=== PATIENT | male | born 1940 ===

== ENCOUNTER 2017-04-20 17:01 | Inpatient (IN) | payer MEDICARE, MEDICAID ==
--- NOTE | 2017-04-20 17:33 | ED PDOC ---
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 Denies chest pain or shortness of breath. Denies nausea or vomiting. States that he did not want to eat throughout the day. Denies acute back pain. Denies constipation or diarrhea. Denies diaphoresis or exertional symptoms. Patient denies prior history of abdominal surgeries. Past Medical History - Cardiac Hx Cardiac Disorders: Yes Hx Hypertension: Yes - Pulmonary Hx Respiratory Disorders: No - Neurological Hx Neurological Disorder: No - Renal Hx Renal Disorder: No - Endocrine/Metabolic Hx Endocrine Disorders: No - Hematological/Oncological Hx Blood Disorders: No - Integumentary Hx Dermatological Disorder: No - Musculoskeletal/Rheumatological Hx Musculoskeletal Disorders: Yes - Gastrointestinal Hx Gastrointestinal Disorders: No - Genitourinary/Gynecological Hx Genitourinary Disorders: No - Psychiatric Hx Psychophysiologic Disorder: No Hx Substance Use: No - Surgical History Hx Coronary Artery Bypass Graft: Yes Hx Open Heart Surgery: Yes - Anesthesia Hx Anesthesia: Yes - Suicidal Assessment Feels Threatened In Home Enviroment: No Family/Social History Family/Social History: Unknown Family HX Smoking Status: Never Smoked Hx Alcohol Use: No Hx Substance Use: No Hx Substance Use Treatment: No Allergies/Home Meds Allergies/Adverse Reactions: Allergies No Known Allergies Allergy (Verified 04/20/17 17:09) Home Medications: Home Meds Medication Instructions Recorded Confirmed Aspirin [Aspirin Chewable] 81 mg PO DAILY 04/20/17 04/20/17 Lisinopril [Zestril] 10 mg PO DAILY 04/20/17 04/20/17 Metoprolol Tartrate [Lopressor] 100 mg PO DAILY 04/20/17 04/20/17 Rosuvastatin Calcium [Crestor] 20 mg PO HS 04/20/17 04/20/17 Review of Systems - Review of Systems Constitutional: absent: Fevers Respiratory: absent: SOB Cardiovascular: absent: Chest Pain Gastrointestinal: Abdominal Pain, Appetite Changes. absent: Constipation, Diarrhea, Nausea, Vomiting, Hematemesis, Food Intolerance Genitourinary Male: absent: Dysuria, Frequency Musculoskeletal: absent: Back Pain, Neck Pain Skin: absent: Rash Neurological: absent: Headache, Dizziness, Focal Weakness Endocrine: absent: Polyuria, Polydipsia Hemo/Lymphatic: absent: Easy Bleeding Psychiatric: absent: Depression, Suicidal Ideation Physical Exam Vital Signs Reviewed: Yes Vital Signs Temp Pulse Resp BP Pulse Ox 04/20/17 21:53 72 16 167/80 H 97 04/20/17 20:00 80 18 170/85 H 97 04/20/17 19:40 91 H 196/94 H 04/20/17 19:31 99.4 F 87 16 196/94 H 97 04/20/17 18:30 92 H 16 148/91 H 100 04/20/17 17:14 95 H 18 190/91 H 100 Temperature: Afebrile Appearance: Positive for: Non-Toxic, Uncomfortable Pain Distress: Mild Mental Status: Positive for: Alert and Oriented X 3 - Systems Exam Head: Present: Atraumatic, Normocephalic Pupils: Present: PERRL Extroacular Muscles: Present: EOMI Mouth: Present: Moist Mucous Membranes Pharnyx: No: ERYTHEMA Nose (Internal): Present: Normal Inspection Neck: Present: Normal Range of Motion. No: Meningeal Signs Cardiovascular: Present: Regular Rate and Rhythm, Murmurs Abdomen: Present: Tenderness (mild ruq pain, non pulsatile masses). No: Peritoneal Signs Back: No: CVA Tenderness Upper Extremity: No: Cyanosis, Edema Lower Extremity: Present: NORMAL PULSES, Neurovascularly Intact. 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 History obtained by patient and family. Patient has prior history of CABG, although currently no complaints of chest pain or sob. Pain sudden onset and he has focal RUQ pain on palpation. He states he has been moving his bowels. Denies nausea or vomiting. Ultrasound ordered, preliminary report reveals no gallstones reportedly. Leukocytosis noted, patient also with elevated lactate. Not hypotensive, not toxic appearing. Code sepsis called as leukocytosis, suspicion of intraabdominal infection, elevated lactate. As significant past cardiac history and ? pulmonary vascular congestion noted on chest xray, iv fluids ordered however with close monitoring of respiratory status. He continues to deny chest pain or sob. CT abdomen/pelvis obtained as persistent right sided abdominal pain on re-exam, blood noted on UA. CT reveals ? ileus, dilated gallbladder. Currently liver function tests unremarkable. Given persistent focal RUQ pain, suspect possible cholecystitis. IV antibiotics initiated. Surgery consulted. Case discussed with Dr. Ruben Boswell, PMD, accepts admission to his service , and patient admitted. Treatment plan d/w patient and translated. On re-exam, pain persists, but no peritoneal signs, cv stable. I discussed case with surgical team, who evaluated patient in the ED. - Lab Interpretations Lab Results: 04/20/17 18:15 04/20/17 18:15 Lab Results 04/20/17 19:15: Urine Color Yellow, Urine Appearance Sl cloudy, Urine pH 6.0, Ur Specific [place] >= 1.030, Urine Protein >=300 H, Urine Glucose (UA) Negative , Urine Ketones Negative, Urine Blood Moderate H, Urine Nitrate Negative, Urine Bilirubin Negative, Urine Urobilinogen 0.2, Ur Leukocyte Esterase Negative, Urine RBC 1 - 3, Urine WBC 0 - 2, Ur Epithelial Cells 0 - 2, Urine Bacteria Occ , Hyaline Casts 0 - 2 04/20/17 18:15: Sodium 138, Chloride 101, Potassium 4.1, Carbon Dioxide 23, Anion Gap 18, BUN 19, Creatinine 0.7, Est GFR ( Amer) > 60, Est GFR (Non- Af Amer) > 60, Random Glucose 129 H, Calcium 8.9, Total Bilirubin 0.9, AST 45, ALT 47, Alkaline Phosphatase 95, Lactate Dehydrogenase 659, Total Creatine Kinase 465 H, CK-MB (CK-2) 7.0 H, CK-MB (CK-2) % 1.5 L, Troponin I < 0.01, Total Protein 8.1, Albumin 4.2, Globulin 3.9, Albumin/Globulin Ratio 1.1, Amylase 93, Lipase 30 04/20/17 18:15: pO2 51, VBG pH 7.39, VBG pCO2 41.0, VBG HCO3 24.8, VBG Total CO2 26.1, VBG O2 Sat (Calc) 90.5 H, VBG Base Excess -0.2 L, VBG Potassium 4.1, Sodium 137.0, Chloride 101.0, Glucose 141 H, Lactate 3.2 H, FiO2 21.0, Venous Blood Potassium 4.1 04/20/17 18:15: PT 11.0, INR 1.02, APTT 25.9 04/20/17 18:15: WBC 14.4 H D, RBC 4.62, Hgb 14.3, Hct 42.0, MCV 90.9, MCH 31.0, MCHC 34.0, RDW 13.2, Plt Count 207, MPV 10.9, Gran % 78.7 H, Lymph % (Auto) 12.7 L, [place] % (Auto) 8.4 H, Eos % (Auto) 0.1 L, Baso % (Auto) 0.1, Gran # 11.31 H, Lymph # 1.8, [place] # 1.2 H, Eos # 0.0, Baso # 0.02 - RAD Interpretation Radiology Orders: 04/20/17 17:20 ABDOMEN COMPLETE [US] Stat 04/20/17 18:21 ABD & PELVIS W/O PO OR IV CONT [CT] Stat 04/20/17 18:33 CHEST ONE VIEW [RAD] Stat - EKG Interpretation EKG Interpretation (Text): 04/20/17 21:26 EKG normal sinus rhythm rate of 92, possible left atrial enlargement Interpreted by ED Physician: Yes Type: 12 lead EKG - Medication Orders Current Medication Orders: Acetaminophen (Tylenol 325mg Tab) 650 mg PO Q6H PRN PRN Reason: Fever >100.4 F Last Admin: 04/20/17 22:44 Dose: 650 mg Aspirin (Aspirin Chewable) 81 mg PO DAILY KENNETH Last Admin: 04/21/17 10:38 Dose: 81 mg Atorvastatin Calcium (Lipitor) 40 mg PO DIN KENNETH Sodium Chloride (Sodium Chloride 0.9%) 1,000 mls @ 100 mls/hr IV .Q10H KENNETH Last Admin: 04/21/17 09:24 Dose: 100 mls/hr Piperacillin Sod/Tazobactam Sod (Zosyn 4.5 Gm In Ns 100ml) 4.5 gm in 100 mls @ 200 mls/hr IVPB Q6 KENNETH PRN Reason: Protocol Stop: 04/28/17 12:01 Vancomycin HCl (Vancomycin 1gm) 1 gm in 250 mls @ 167 mls/hr IVPB STAT STA PRN Reason: Protocol Stop: 04/21/17 12:09 Last Admin: 04/21/17 10:48 Dose: 167 mls/hr Lisinopril (Zestril) 10 mg PO DAILY KENNETH Metoprolol Succinate (Toprol Xl) 100 mg PO BRK [facility] Last Admin: 04/21/17 10:38 Dose: 100 mg Morphine Sulfate (Morphine) 4 mg IVP Q4H PRN PRN Reason: Pain, moderate (4-7) Last Admin: 04/21/17 10:44 Dose: 4 mg Ondansetron HCl (Zofran Inj) 4 mg IVP Q6H PRN PRN Reason: Nausea/Vomiting Pantoprazole Sodium (Protonix Inj) 40 mg IVP DAILY [facility] Last Admin: 04/21/17 09:21 Dose: 40 mg Discontinued Medications Famotidine (Pepcid) 20 mg IVP STAT STA Stop: 04/20/17 17:26 Last Admin: 04/20/17 18:19 Dose: 20 mg Piperacillin Sod/Tazobactam Sod (Zosyn 4.5 Gm In Ns 100ml) 4.5 g in 100 mls @ 200 mls/hr IVPB STAT STA PRN Reason: Protocol Stop: 04/20/17 20:16 Last Admin: 04/20/17 19:57 Dose: 200 mls/hr Piperacillin Sod/Tazobactam Sod (Zosyn 3.375 In Ns 100ml) 100 mls @ 200 mls/hr IVPB Q6 KENNETH PRN Reason: Protocol Stop: 04/21/17 06:29 Last Admin: 04/21/17 05:43 Dose: 200 mls/hr Sodium Chloride (Sodium Chloride 0.9%) 500 mls @ 1,000 mls/hr IV .Q30M STA Stop: 04/20/17 21:56 Last Admin: 04/20/17 21:39 Dose: 1,000 mls/hr Lisinopril (Zestril) 10 mg PO STAT STA Stop: 04/20/17 19:35 Last Admin: 04/20/17 19:40 Dose: 10 mg Metoprolol Tartrate (Lopressor) 100 mg PO STAT STA Stop: 04/20/17 19:34 Last Admin: 04/20/17 19:40 Dose: 100 mg Disposition/Present on Arrival - Present on Arrival Any Indicators Present on Arrival: No History of DVT/PE: No History of Uncontrolled Diabetes: No Urinary Catheter: No History of Decub. Ulcer: No History Surgical Site Infection Following: None - Disposition Have Diagnosis and Disposition been Completed?: Yes Diagnosis: Abdominal pain, Leukocytosis, Sepsis Disposition: HOSPITALIZED Disposition Time: 20:20 Patient Plan: Admission Patient Problems: Current Active Problems Problem Status Onset Abdominal pain Acute Leukocytosis Acute Sepsis Acute Condition: FAIR
[2017-04-20] MEDS: Sodium Chloride 0.9% 1,000 ML IV SCH (18:22)
[2017-04-20 18:39] LABS: BASO # 0.02 K/mm3 (0.0-2.0); BASO % 0.1 % (0.0-3.0); EOS % 0.1 % (1.5-5.0); GRAN # 11.31 (1.4-6.5); GRAN % 78.7 % (50.0-68.0); LYMPH # 1.8 (1.2-3.4); LYMPH % 12.7 % (22.0-35.0); MEAN CELL VOLUME 90.9 fl (80.0-105.0); MEAN PLATELET VOLUME 10.9 fl (7.0-11.0); MONO # 1.2 (0.1-0.6); MONO % 8.4 % (1.0-6.0); RED CELL DISTRIBUTION WIDTH 13.2 % (11.5-14.5); VENOUS BLOOD GAS BASE EXCESS -0.2 mmol/L (0.0-2.0); VENOUS BLOOD PH 7.39 (7.32-7.43); WHITE BLOOD COUNT 14.4 10^3/ul (4.5-11.0)
[2017-04-20 18:45] LABS: INR 1.02 (0.93-1.08); PARTIAL THROMBOPLASTIN TIME 25.9 Seconds (23.7-30.8)
[2017-04-20 18:46] LABS: ALB/GLOB RATIO 1.1 (1.1-1.8); ALKALINE PHOSPHATASE 95 U/L (38-126); ALT/SGPT 47 U/L (7-56); AMYLASE 93 U/L (35-125); AST/SGOT 45 U/L (17-59); BILIRUBIN,TOTAL 0.9 mg/dL (0.2-1.3); BLOOD UREA NITROGEN 19 mg/dL (7-21); CALCIUM 8.9 mg/dL (8.4-10.5); CARBON DIOXIDE 23 mmol/L (21-33); CHLORIDE 101 mmol/L (98-107); GFR AFRICAN-AMERICAN > 60; GLUCOSE,RANDOM 129 mg/dL (70-110); LIPASE 30 U/L (23-300); POTASSIUM 4.1 mmol/L (3.6-5.0); SODIUM 138 mmol/L (132-148); TOTAL PROTEIN 8.1 g/dL (5.8-8.3)
[2017-04-20 19:19] LABS: TROPONIN I < 0.01 ng/mL
[2017-04-20 19:45] LABS: URINE BILIRUBIN NEGATIVE (NEGATIVE); URINE BLOOD MODERATE (NEGATIVE); URINE GLUCOSE (UA) NEGATIVE (NEGATIVE); URINE KETONE NEGATIVE (NEGATIVE); URINE LEUKOCYTE ESTERASE NEGATIVE Leu/uL (NEGATIVE); URINE PROTEIN >=300 mg/dL (<30 mg/dL); URINE UROBILINOGEN 0.2 E.U./dL (<1 E.U./dL)
[2017-04-20] MEDS ORDERED: TAZO IVPB STA (19:47)
[2017-04-20] MEDS ORDERED: NS IVPB STA (19:47)
[2017-04-20] MEDS ORDERED: PIPERACILL IVPB STA (19:47)
[2017-04-20 19:49] LABS: URINE APPEARANCE SL CLOUDY (CLEAR); URINE COLOR YELLOW (YELLOW)
[2017-04-20 20:00] LABS: URINE BACTERIA OCC (NEG); URINE EPITHELIAL CELLS 0 - 2 /hpf (0-5); URINE WBC 0 - 2 /hpf (0-6)
--- NOTE | 2017-04-20 20:16 | CT ---
EXAM: CT Abdomen and Pelvis Without Intravenous Contrast EXAM DATE/TIME: 04/20/2017 6:21 PM CLINICAL HISTORY: 76 years old, male; Pain; Abdominal pain; Additional info: Right sided abdominal pain TECHNIQUE: Axial computed tomography images of the abdomen and pelvis without intravenous contrast. All CT scans at this facility use one or more dose reduction techniques, viz.: automated exposure control; ma/kV adjustment per patient size (including targeted exams where dose is matched to indication; i.e. head); or iterative reconstruction technique. Coronal and sagittal reformatted images were created and reviewed. COMPARISON: US - ABDOMEN COMPLETE 04/20/2017 5:33:25 PM FINDINGS: Lower thorax: There are postsurgical changes of median sternotomy. There are clips in the mediastinum. There are coronary artery calcifications. The heart is mildly enlarged. There is a small hiatal hernia. There is atelectasis and scarring at the lung bases. ABDOMEN: Liver: unremarkable Gallbladder and bile ducts: Gallbladder is distended, 11 cm in length. Common duct is unremarkable. Pancreas: Pancreas is mildly atrophic. Spleen: unremarkable Adrenals: There is mild adrenal thickening bilaterally Kidneys and ureters: There is a 6.2 mm hyperdense right upper pole renal lesion. There is a left renal cyst. There is nonspecific perinephric stranding bilaterally.There is no pelvocaliectasis or ureterectasis. Stomach and bowel: Stomach is almost empty. Rotation is normal. Proximal small bowel is mildly distended with fluid and air. There is air and fluid throughout the small bowel. There is no obstruction. Terminal ileum is unremarkable. Appendix is unremarkable. Colon is incompletely distended which limits evaluation. There is minimal diverticulosis. Appendix: See stomach and bowel PELVIS: Bladder: unremarkable Reproductive: Seminal vesicles and prostate are unremarkable. ABDOMEN and PELVIS: Intraperitoneal space: There is no free air or free fluid. Bones/joints: There are bridging syndesmophytes throughout the visualized thoracic spine and upper lumbar spine.There are degenerative changes in the osseus structures. There is partial ankylosis of the sacroiliac joints Soft tissues: There are bilateral fat-containing inguinal hernias. Vasculature: There are vascular calcifications. Lymph nodes: There is no pathologic adenopathy IMPRESSION: Distended gallbladder, no ductal dilatation; no CT findings of appendicitis or diverticulitis; probable hyperdense right upper pole renal cyst, no renal or ureteral stones or hydronephrosis; mildly distended upper small bowel loops suggesting ileus, no obstruction Additional findings as described above.
[2017-04-20] MEDS ORDERED: Sodium Chloride 0.9% 500 ML IV STA (21:27)
--- NOTE | 2017-04-20 21:37 | CP.PCM.CON ---
History of Present Illness - History of Present Illness History of Present Illness: General surgery Consult Note: Dr. Ogden 76M w/ PMHx HTN, CT, cardiac bypass surgery, presents to the ED w/ complaints of RUQ pain. Patient reports pain woke him up around 1AM. Describes pain as sharp, constant, and non-radiating. He states this is the first time he experiences this type of pain. Denies fever/chills, chest pain, SOB, cough, n/v/ d, dysuria, constipation. PMHx: as stated above PSurgHx: cataract surgery, cardiac bypass surgery Allergies: NKDA Review of Systems - Review of Systems Review of Systems: 12 pt ROS carried out, unremarkable,except as stated in HPI Past Patient History - Past Social History Smoking Status: Never Smoked - CARDIAC Hx Cardiac Disorders: Yes Hx Hypertension: Yes - PULMONARY Hx Respiratory Disorders: No - NEUROLOGICAL Hx Neurological Disorder: No - RENAL Hx Chronic Kidney Disease: No - ENDOCRINE/METABOLIC Hx Endocrine Disorders: No - HEMATOLOGICAL/ONCOLOGICAL Hx Blood Disorders: No - INTEGUMENTARY Hx Dermatological Problems: No - MUSCULOSKELETAL/RHEUMATOLOGICAL Hx Musculoskeletal Disorders: Yes - GASTROINTESTINAL Hx Gastrointestinal Disorders: No - GENITOURINARY/GYNECOLOGICAL Hx Genitourinary Disorders: No - PSYCHIATRIC Hx Psychophysiologic Disorder: No Hx Substance Use: No - SURGICAL HISTORY Hx Coronary Artery Bypass Graft: Yes Hx Open Heart Surgery: Yes - ANESTHESIA Hx Anesthesia: Yes Meds Allergies/Adverse Reactions: Allergies Allergy/AdvReac Type Severity Reaction Status Date / Time No Known Allergies Allergy Verified 04/20/17 17:09 - Medications Medications: Current Medications Acetaminophen (Tylenol 325mg Tab) 650 mg PO Q6H PRN PRN Reason: Fever >100.4 F Sodium Chloride (Sodium Chloride 0.9%) 1,000 mls @ 100 mls/hr IV .Q10H KENNETH Last Admin: 04/20/17 18:22 Dose: 100 mls/hr Piperacillin Sod/Tazobactam Sod (Zosyn 3.375 In Ns 100ml) 100 mls @ 200 mls/hr IVPB Q6 KENNETH PRN Reason: Protocol Stop: 04/21/17 06:29 Sodium Chloride (Sodium Chloride 0.9%) 500 mls @ 1,000 mls/hr IV .Q30M STA Stop: 04/20/17 21:56 Morphine Sulfate (Morphine) 4 mg IVP Q4H PRN PRN Reason: Pain, moderate (4-7) Ondansetron HCl (Zofran Inj) 4 mg IVP Q6H PRN PRN Reason: Nausea/Vomiting Pantoprazole Sodium (Protonix Inj) 40 mg IVP DAILY KENNETH Results - Vital Signs Recent Vital Signs: Last Vital Signs Temp 99.4 F 04/20/17 19:31 Pulse 80 04/20/17 20:00 Resp 18 04/20/17 20:00 BP 170/85 H 04/20/17 20:00 Pulse Ox 97 04/20/17 20:00 - Labs Result Diagrams: 04/20/17 18:15 04/20/17 18:15 Assessment & Plan - Assessment and Plan (Free Text) Assessment: 76M w/ RUQ pain, leukocytosis, and distended GB on CT scan. No evidence of stones on Abd U/S. -F/u official U/S report -Will order HIDA scan -NPO -IVF -Abx -Anti-emetics/Analgesics -DVT/GI ppx -Will make further recommendations based on HIDA scan results -Further recs per Dr. Alin Merrill PGY-2
[2017-04-20 21:56] LABS: VENOUS BLOOD GAS BASE EXCESS -0.2 mmol/L (0.0-2.0); VENOUS BLOOD PH 7.42 (7.32-7.43)
[2017-04-20 22:05] VITALS: BMI 38.2
[2017-04-21] MEDS ORDERED: Piperacillin/Tazobact 3.375 gm 100 ML IVPB SCH
--- NOTE | 2017-04-21 08:46 | CP.PCM.PN ---
Subjective - Date & Time of Evaluation Date of Evaluation: 04/21/17 Time of Evaluation: 07:00 - Subjective Subjective: General sx progress note for Dr. Kenisha Hatch, PGY-1 Pt S & E at bedside. Pt reports RUQ ab pain is much improved, some chills overnight. Denies N/V/F, CP , SOB. Has had temperature over last 24H- Tmax 101.3. Objective - Vital Signs/Intake and Output Vital Signs (last 24 hours): Temp Pulse Resp BP Pulse Ox 99.9 F H 75 20 161/59 H 96 04/21/17 07:49 04/21/17 07:49 04/21/17 07:49 04/21/17 07:49 04/21/17 07:49 Intake and Output: 04/21/17 04/21/17 06:59 18:59 Intake Total 120 Balance 120 - Medications Medications: Current Medications Acetaminophen (Tylenol 325mg Tab) 650 mg PO Q6H PRN PRN Reason: Fever >100.4 F Last Admin: 04/20/17 22:44 Dose: 650 mg Sodium Chloride (Sodium Chloride 0.9%) 1,000 mls @ 100 mls/hr IV .Q10H KENNETH Last Admin: 04/20/17 18:22 Dose: 100 mls/hr Morphine Sulfate (Morphine) 4 mg IVP Q4H PRN PRN Reason: Pain, moderate (4-7) Ondansetron HCl (Zofran Inj) 4 mg IVP Q6H PRN PRN Reason: Nausea/Vomiting Pantoprazole Sodium (Protonix Inj) 40 mg IVP DAILY KENNETH - Labs Labs: PT 11.0 Seconds (9.9-11.8) 04/20/17 18:15 INR 1.02 (0.93-1.08) 04/20/17 18:15 APTT 25.9 Seconds (23.7-30.8) 04/20/17 18:15 - Constitutional Appears: Non-toxic, No Acute Distress - Head Exam Head Exam: ATRAUMATIC, NORMAL INSPECTION, NORMOCEPHALIC - Eye Exam Eye Exam: EOMI, Normal appearance - ENT Exam ENT Exam: Mucous Membranes Moist, Normal Exam - Neck Exam Neck Exam: Full ROM - Respiratory Exam Respiratory Exam: Clear to Ausculation Bilateral, NORMAL BREATHING PATTERN. absent: Rales, Rhonchi, Wheezes - Cardiovascular Exam Cardiovascular Exam: REGULAR RHYTHM, +S1, +S2 - GI/Abdominal Exam GI & Abdominal Exam: Guarding (RUQ), Soft, Tenderness (RUQ), Hypoactive Bowel Sounds. absent: Distended (obese), Firm, Rigid, Rebound - Extremities Exam Extremities Exam: Normal Inspection. absent: Pedal Edema - Neurological Exam Neurological Exam: Alert, CN II-XII Intact. absent: Awake (asleep, arousable to verbal stimuli) - Psychiatric Exam Psychiatric exam: Normal Affect, Normal Mood - Skin Skin Exam: Dry, Intact, Normal Color, Warm Assessment and Plan - Assessment and Plan (Free Text) Assessment: 76M w/biliary colic- improving Plan: FU HIDA CLD IVF ABx Anti-emetics Pain control Further recs per Dr. Alin Hatch, PGY-1
[2017-04-21 09:20] LABS: BASO # 0.02 K/mm3 (0.0-2.0); BASO % 0.1 % (0.0-3.0); GRAN # 12.85 (1.4-6.5); GRAN % 79.3 % (50.0-68.0); HEMATOCRIT 38.7 % (42.0-52.0); LYMPH # 1.4 (1.2-3.4); LYMPH % 8.6 % (22.0-35.0); MEAN CELL VOLUME 90.6 fl (80.0-105.0); MEAN CORPUSCULAR HEMOGLOBIN 31.6 pg (25.0-35.0); MEAN CORPUSCULAR HGB CONC 34.9 g/dl (31.0-37.0); MEAN PLATELET VOLUME 10.4 fl (7.0-11.0); MONO # 1.9 (0.1-0.6); RED CELL DISTRIBUTION WIDTH 13.5 % (11.5-14.5); WHITE BLOOD COUNT 16.2 10^3/ul (4.5-11.0)
[2017-04-21] MEDS: Sodium Chloride 0.9% 1,000 ML IV SCH (09:24)
[2017-04-21 09:39] LABS: ALKALINE PHOSPHATASE 80 U/L (38-126); ALT/SGPT 44 U/L (7-56); AST/SGOT 36 U/L (17-59); BILIRUBIN,TOTAL 1.8 mg/dL (0.2-1.3); BLOOD UREA NITROGEN 16 mg/dL (7-21); CALCIUM 8.2 mg/dL (8.4-10.5); CARBON DIOXIDE 24 mmol/L (21-33); CHLORIDE 105 mmol/L (98-107); GFR AFRICAN-AMERICAN > 60; GLUCOSE,RANDOM 127 mg/dL (70-110); SODIUM 137 mmol/L (132-148); TOTAL PROTEIN 7.1 g/dL (5.8-8.3)
[2017-04-21] MEDS: Metoprolol Succinate 100 mg XL Tab PO SCH (10:38)
[2017-04-21] MEDS ORDERED: Vancomycin 1gm in NS 250ml 1 GM/250 ML BAG IVPB STA (10:40)
[2017-04-21] MEDS: Morphine 4 mg/ml ISec IVP PRN (10:44)
--- NOTE | 2017-04-21 11:03 | RAD ---
PROCEDURE: CHEST RADIOGRAPH, 1 VIEW HISTORY: ruq abdominal pain COMPARISON: None available. FINDINGS: LUNGS: Clear. PLEURA: No pneumothorax or pleural fluid seen. CARDIOVASCULAR: There is moderate to severe cardiomegaly. OSSEOUS STRUCTURES: Sternal wires VISUALIZED UPPER ABDOMEN: Normal. OTHER FINDINGS: None. IMPRESSION: Severe cardiomegaly. No acute findings
[2017-04-21] MEDS: Piperacill/Tazo 4.5gm in NS 4.5 GM/100 ML BAG IVPB SCH ×3 (12:28→23:17)
--- NOTE | 2017-04-21 13:21 | US ---
HISTORY: upper abdominal pain COMPARISON: None. TECHNIQUE: Sonographic evaluation of the abdomen. FINDINGS: LIVER: Measures 17.7 cm. Increased echogenicity of the liver parenchyma. No mass. No intrahepatic bile duct dilatation. GALLBLADDER: Unremarkable. No gallstones. COMMON BILE DUCT: Measures 4.6 mm. No stones. No dilatation. PANCREAS: Limited visualization RIGHT KIDNEY: Measures 13.8 x 6.0 x 5.7cm. Normal echogenicity. No calculus, mass, or hydronephrosis. LEFT KIDNEY: Measures 13.1 x 6.2 x 5.4cm. Normal echogenicity. No calculus, mass, or hydronephrosis. SPLEEN: Normal in size and contour. No mass. AORTA: No aneurysmal dilatation. IVC: Unremarkable. OTHER FINDINGS: None. IMPRESSION: Unremarkable abdominal sonogram.
--- NOTE | 2017-04-21 13:45 | HP ---
HISTORY OF PRESENT ILLNESS: The patient is a 76-year-old male with a past medical history of CAD s/p AR s/p CABG, hypertension, hyperlipidemia and obesity who presented to [facility] emergency department for evaluation of acute onset of right upper quandrant abdominal pain. The patient states that he was in his usual state of health until the day of presentation to the emergency department when he awoke at approximately 1 a.m. with a severe , sharp, stabbing right upper quadrant abdominal pain that was non-radiating and not associated with any symptoms including nausea, vomiting, diarrhea, diaphoresis, fevers, chills, rigors or hematemesis. The patient states that he never felt such pain in the past and that it is unlike the pain he had when he suffered his AR several years ago. Given the severe intensity of the pain and unrelenting nature of the pain he opted for emergency department evaluation. Upon arrival to the ED he was noted to be afebrile but slightly tachycardiac, hypertensive and in moderate distress secondary to right upper quadrant abdominal pain. Physical examination disclosed a positive Hair sign and as such the patient underwent a CT of the abdomen and pelvis which demonstrated a distended gallbladder with no obvious stones. Given his symptoms, the patient was started on IV fluids, maintained NPO and admitted to the general medical moralez for continued pain control. PAST MEDICAL HISTORY: As per HPI. PAST SURGICAL HISTORY:: As per HPI, also bilateral cataract removal. ALLERGIES: NO KNOWN DRUG ALLERGIES. MEDICATIONS: Aspirin 81 mg p.o. daily, Crestor 20 mg p.o. daily, Toprol XL 100 mg p.o. daily, and lisinopril 10 mg p.o. daily. FAMILY HISTORY: Noncontributory. SOCIAL HISTORY: The patient denies any smoking history. He reports social alcohol use and denies illicit drug abuse. REVIEW OF SYSTEMS: A 14-point review of systems is negative except as per HPI. PHYSICAL EXAMINATION: VITAL SIGNS: Temperature 99.9, pulse 75, blood pressure 161/59, respiratory rate 20, oxygen saturation 96% on room air. GENERAL: Morbidly obese man lying in bed, in mild distress secondary to right upper quadrant abdominal pain. HEENT: PERRL, EOMI. No scleral icterus. No conjunctiva pallor. NECK: No JVD. No bruits. LUNGS: Clear to auscultation. CARDIOVASCULAR: Regular rate and rhythm. Normal S1 and S2. ABDOMEN: Normoactive bowel sounds. Soft, tender to palpation to RUQ with voluntary guarding. No rigidity. No tympany. EXTREMITIES: No edema. NEUROLOGIC: Awake, alert and oriented x3. No focal motor deficits. LABORATORY DATA: WBC 16.2 with 79% neutrophils, hemoglobin 13.5, hematocrit 39 , platelets 174. Chemistry reviewed unremarkable. Total bilirubin 1.8. Blood cultures pending. IMAGING STUDIES: 1. Chest x-ray demonstrates no acute pathology. 2. CT of the abdomen and pelvis without contrast demonstrates a distended gallbladder with no ductal dilatation and no findings of appendicitis or diverticulitis and does demonstrate mildly distended upper small bowel loop suggestive of ileus with no obstruction. ASSESSMENT: The patient is a 76-year-old man with a past medical history of coronary artery disease status post myocardial infarction status post coronary artery bypass graft, hypertension, hyperlipidemia, and morbid obesity who presented to [facility] with a several hour history of acute onset of severe sharp stabbing right upper quadrant abdominal pain and who is admitted to the general medical moralez for continued pain control and management of sepsis secondary to presumed hepatobiliary source. PLAN 1. Sepsis secondary to likely hepatobiliary source. The patient was noted to have a fever of 101.3 this morning and increasing leukocytosis. He received a dose of Vancomycin and Zosyn in the emergency room department. Dr. Louis of infectious disease has been consulted for further evaluation and recommendations and the patient will likely benefit from Zosyn. We will continue to monitor for fever and leukocytosis. Continue with Tylenol as needed for fever. 2. Cholecystitis versus possibility of a passed gallstone. Dr. Ogden of general surgery has been mental health consultant. Dr. Lieberman of gastroenterology has been consulted. A HIDA is ordered and pending. We will await the results. At present, the patient is on a liquid diet as per surgical team. Continue with IV fluid hydration and advanced diet as per general surgery. 3. CAD status post AR status post CABG. Continue with aspirin 81 mg p.o. daily , Lipitor 40 mg p.o. daily, and Toprol XL 100 mg p.o. daily. The patient remains hemodynamically stable and chest pain free. 4. Hypertension. Blood pressure slightly elevated. However, this may be secondary to some pain. We will resume outpatient antihypertensives. 5. Hyperlipidemia. The patient is on Crestor 20 mg at home. However, this is not unformulary in the hospital. We will start Lipitor 40 mg p.o. daily. 6. Morbid obesity. The patient has been counseled on dietary changes and lifestyle modifications. 7. Prophylaxis. Continue with Protonix for GI prophylaxis and Venodyne for DVT prophylaxis. CODE STATUS: Full code. Ruben Boswell MD MTDD
--- NOTE | 2017-04-21 15:10 | CP.PCM.CON ---
History of Present Illness - History of Present Illness History of Present Illness: 76 year old male with PMH of HTN, CAD S/P CABG, obesity with BMI 38, S/P cataract surgery came in to [facility] complaining of right upper quadrant pain associated with some nausea and chills. In the ED, he was noted to have a fever of 101.3 F. He is also complaining of some pain in the right flank area which has now resolved and had some difficulty urinating prior to admission. He denies headache or dizziness, no sore throat, no cough or colds, no SOB, no diarrhea, no dysuria. In the ED, CT scan of the abdomen and pelvis showed non-specific bilateral perinephric stranding and distened gallbladder. Infectious Diseases consult is requested to further evaluate and manage. Review of Systems - Review of Systems All systems: reviewed and no additional remarkable complaints except (as per HPI ) Past Patient History - Past Social History Smoking Status: Never Smoked - CARDIAC Hx Cardiac Disorders: Yes Hx Hypertension: Yes - PULMONARY Hx Respiratory Disorders: No - NEUROLOGICAL Hx Neurological Disorder: No - HEENT Hx Cataracts: Yes (b/l sx) - RENAL Hx Chronic Kidney Disease: No - ENDOCRINE/METABOLIC Hx Endocrine Disorders: No - HEMATOLOGICAL/ONCOLOGICAL Hx Blood Disorders: No - INTEGUMENTARY Hx Dermatological Problems: No - MUSCULOSKELETAL/RHEUMATOLOGICAL Hx Musculoskeletal Disorders: Yes - GASTROINTESTINAL Hx Gastrointestinal Disorders: No - GENITOURINARY/GYNECOLOGICAL Hx Genitourinary Disorders: No - PSYCHIATRIC Hx Psychophysiologic Disorder: No Hx Substance Use: No - SURGICAL HISTORY Hx Coronary Artery Bypass Graft: Yes Hx Open Heart Surgery: Yes - ANESTHESIA Hx Anesthesia: Yes Meds Allergies/Adverse Reactions: Allergies Allergy/AdvReac Type Severity Reaction Status Date / Time No Known Allergies Allergy Verified 04/20/17 17:09 - Medications Medications: Current Medications Acetaminophen (Tylenol 325mg Tab) 650 mg PO Q6H PRN PRN Reason: Fever >100.4 F Last Admin: 04/20/17 22:44 Dose: 650 mg Acetaminophen (Tylenol 325mg Tab) 650 mg PO Q6H PRN PRN Reason: Headache Aspirin (Aspirin Chewable) 81 mg PO DAILY [facility] Last Admin: 04/21/17 10:38 Dose: 81 mg Atorvastatin Calcium (Lipitor) 40 mg PO DIN [facility] Sodium Chloride (Sodium Chloride 0.9%) 1,000 mls @ 100 mls/hr IV .Q10H [facility] Last Admin: 04/21/17 09:24 Dose: 100 mls/hr Piperacillin Sod/Tazobactam Sod (Zosyn 4.5 Gm In Ns 100ml) 4.5 gm in 100 mls @ 200 mls/hr IVPB Q6 [facility] PRN Reason: Protocol Stop: 04/28/17 12:01 Last Admin: 04/21/17 12:28 Dose: 200 mls/hr Lisinopril (Zestril) 10 mg PO DAILY [facility] Metoprolol Succinate (Toprol Xl) 100 mg PO BRK [facility] Last Admin: 04/21/17 10:38 Dose: 100 mg Morphine Sulfate (Morphine) 4 mg IVP Q4H PRN PRN Reason: Pain, moderate (4-7) Last Admin: 04/21/17 10:44 Dose: 4 mg Ondansetron HCl (Zofran Inj) 4 mg IVP Q6H PRN PRN Reason: Nausea/Vomiting Pantoprazole Sodium (Protonix Inj) 40 mg IVP DAILY [facility] Last Admin: 04/21/17 09:21 Dose: 40 mg Physical Exam - Constitutional Appears: Non-toxic, No Acute Distress - Head Exam Head Exam: NORMAL INSPECTION - ENT Exam ENT Exam: Mucous Membranes Moist - Neck Exam Neck exam: Negative for: Lymphadenopathy, Meningismus - Respiratory Exam Respiratory Exam: Decreased Breath Sounds - Cardiovascular Exam Cardiovascular Exam: +S1, +S2 - GI/Abdominal Exam GI & Abdominal Exam: Soft, Tenderness (mild, right upper quadrant). absent: Distended, Firm, Guarding, Rebound, Rigid - Back Exam Back exam: absent: CVA tenderness (L), CVA tenderness (R) Results - Vital Signs Recent Vital Signs: Last Vital Signs Temp 99.9 F H 04/21/17 07:49 Pulse 75 04/21/17 10:38 Resp 20 04/21/17 07:49 BP 161/59 H 04/21/17 10:38 Pulse Ox 96 04/21/17 07:49 - Labs Result Diagrams: 04/21/17 09:10 04/21/17 09:10 Labs: Laboratory Results - last 24 hr 04/20/17 04/21/17 04/21/17 21:35 09:10 09:10 WBC 16.2 H RBC 4.27 Hgb 13.5 L Hct 38.7 L MCV 90.6 MCH 31.6 MCHC 34.9 RDW 13.5 Plt Count 174 MPV 10.4 Gran % 79.3 H Lymph % (Auto) 8.6 L [place] % (Auto) 12.0 H Eos % (Auto) 0.0 L Baso % (Auto) 0.1 Gran # 12.85 H Lymph # 1.4 [place] # 1.9 H Eos # 0.0 Baso # 0.02 pO2 145 H VBG pH 7.42 VBG pCO2 37.0 L VBG HCO3 24.0 VBG Total CO2 25.1 VBG O2 Sat (Calc) 99.2 H VBG Base Excess -0.2 L VBG Potassium 4.0 Sodium 135.0 137 Chloride 103.0 105 Glucose 134 H Lactate 2.0 FiO2 21.0 Potassium 4.0 Carbon Dioxide 24 Anion Gap 12 BUN 16 Creatinine 0.8 Est GFR ( Amer) > 60 Est GFR (Non-Af Amer) > 60 Random Glucose 127 H Calcium 8.2 L Total Bilirubin 1.8 H AST 36 ALT 44 Alkaline Phosphatase 80 Total Protein 7.1 Albumin 3.6 Globulin 3.5 Albumin/Globulin Ratio 1.0 L Venous Blood Potassium 4.0 Assessment & Plan - Assessment and Plan (Free Text) Plan: Assessment Systemic Inflammatory Response Syndrome, R/O sepsis due to cholecystitis or biliary tract disease, R/O UTI HTN CAD S/P CABG obesity with BMI 38 S/P cataract surgery Plan patient given a dose of IV Vancomycin, we have started Zosyn pending blood cx, HIDA scan, urine cx will monitor clinically
--- NOTE | 2017-04-21 15:48 | CON ---
DATE: 04/21/2017 REQUESTING PHYSICIAN: Ruben Boswell MD REASON FOR CONSULT: I have been asked to see this 76-year-old male with history of coronary artery disease, hyperlipidemia, hypertension, comes to the hospital with severe right upper quadrant pain which began the care navigator on the day of admission. This was associated with fever to 101. He denies any nausea, vomiting. Routine workup in the emergency room reveals normal liver enzymes, elevated white blood cell count to 16,000, normal gallbladder sonography, and a CT scan of the abdomen and pelvis showing a distended gallbladder. The patient states that his abdominal pain has improved since his hospitalization and now only has right upper quadrant pain with palpation. Again, he denies any nausea, vomiting, chest pain, shortness of breath. PAST MEDICAL HISTORY: As above. Again, he has a history of hypertension, coronary artery disease, hyperlipidemia. PAST SURGICAL HISTORY: Notable for coronary artery bypass surgery, cataract surgery. SOCIAL HISTORY: He denies cigarette smoking or alcohol use. FAMILY HISTORY: Noncontributory. REVIEW OF SYSTEMS: Fourteen-point review of systems is notable for right upper quadrant abdominal pain and fever. PHYSICAL EXAMINATION GENERAL: Obese male lying in bed, in no acute distress. VITAL SIGNS: Reveal temperature of 99.9, blood pressure 161/59, heart rate is 75. T-max is 101.3. His BMI is 38.3. HEENT: Reveal sclerae to be white. Conjunctivae pink. NECK: Supple. CHEST: Reveal lungs to be clear. HEART: Exam reveals regular rate and rhythm. ABDOMEN: Obese, soft, mild right upper quadrant tenderness. There is no rebound. There is no guarding. EXTREMITIES: Show no edema. LABORATORY DATA: Reveal white blood cell count 16.2, hemoglobin 13.5. Chemistries reveal blood sugar 127. AST, ALT, alk phos were normal. Total bilirubin is 1.8. Ultrasound of the abdomen is negative. CT scan of the abdomen and pelvis shows a distended gallbladder. Initial scans of the hepatobiliary scan shows nonvisualization of the gallbladder awaiting 4-hour delayed study. IMPRESSION: A 76-year-old male with coronary artery disease, hypertension, hyperlipidemia admitted to the hospital with severe right upper quadrant abdominal pain with elevated white blood cell count and fever. CT scan of the abdomen and that showed distended gallbladder. One most rule out an acalculous cholecystitis. RECOMMENDATIONS 1. Await delayed imaging of a hepatobiliary scan. 2. Continue IV antibiotics including Zosyn. 3. Continued surgical followup. If the patient continues to have fever and elevated white blood cell count, he may need a cholecystectomy. Buck Hunt MD
--- NOTE | 2017-04-21 16:37 | NM ---
PROCEDURE: Nuclear Medicine Hepatobiliary Scan HISTORY: jeronimo pain COMPARISON: April 20, 2017. Abdominal ultrasound TECHNIQUE: 7.6 mCi of technetium 99m Mebrofenin was administered intravenously. Planar images of the abdomen were obtained at 5 min intervals to 60 mins. Delayed images were also obtained. FINDINGS: LIVER: Timely and heterogeneous uptake. COMMON BILE DUCT: identified at 15 mins. GALLBLADDER: Not identified at 04:00. SMALL BOWEL: Identified at fifteen mins. IMPRESSION: Positive Hepatobiliary Scan. The cystic duct is occluded presumptive evidence for acute cholecystitis. .
--- NOTE | 2017-04-21 18:05 | CARD ---
APPROVED REPORT EKG Measurement Heart [id number] <Conclusion> Normal sinus rhythm Possible Left atrial enlargement Borderline ECG
--- NOTE | 2017-04-21 21:54 | CP.PCM.CON ---
History of Present Illness - History of Present Illness History of Present Illness: General surgery consult note for Dr. Garduno-Mabel Hatch, PGY-1 Pt S & E at bedside. 76M w/PMH sig for HTN, SD, CABG consulted for 2nd surgical opinion for RUQ pain. Patient originally admitted to hospital for RUQ pain that woke him up from sleep at approx 1am on day of admission. Pain was sharp, constant, non radiating. Pain is now much improved since admission with medial interventions. Admits to intermittent PAT, chills. Denies previous episodes of similar, N/V/F, SOB, CP, constipation/diarrhea, dysuria, other complaints. PMH: HTN, SD PSH: CABG, cataract sx All: NKDA Review of Systems - Review of Systems All systems: reviewed and no additional remarkable complaints except - Constitutional Constitutional: Chills. absent: Fever - EENT Nose/Mouth/Throat: absent: Sore Throat - Cardiovascular Cardiovascular: absent: Chest Pain - Respiratory Respiratory: absent: Cough - Gastrointestinal Gastrointestinal: Abdominal Pain (improved). absent: Constipation, Diarrhea, Nausea, Vomiting - Genitourinary Genitourinary: absent: Change in Urinary Stream, Dysuria - Musculoskeletal Musculoskeletal: absent: Back Pain - Integumentary Integumentary: absent: Rash - Neurological Neurological: absent: Behavioral Changes Past Patient History - Past Social History Smoking Status: Never Smoked - CARDIAC Hx Cardiac Disorders: Yes Hx Hypertension: Yes - PULMONARY Hx Respiratory Disorders: No - NEUROLOGICAL Hx Neurological Disorder: No - HEENT Hx Cataracts: Yes (b/l sx) - RENAL Hx Chronic Kidney Disease: No - ENDOCRINE/METABOLIC Hx Endocrine Disorders: No - HEMATOLOGICAL/ONCOLOGICAL Hx Blood Disorders: No - INTEGUMENTARY Hx Dermatological Problems: No - MUSCULOSKELETAL/RHEUMATOLOGICAL Hx Musculoskeletal Disorders: Yes - GASTROINTESTINAL Hx Gastrointestinal Disorders: No - GENITOURINARY/GYNECOLOGICAL Hx Genitourinary Disorders: No - PSYCHIATRIC Hx Psychophysiologic Disorder: No Hx Substance Use: No - SURGICAL HISTORY Hx Coronary Artery Bypass Graft: Yes Hx Open Heart Surgery: Yes - ANESTHESIA Hx Anesthesia: Yes Meds Allergies/Adverse Reactions: Allergies Allergy/AdvReac Type Severity Reaction Status Date / Time No Known Allergies Allergy Verified 04/20/17 17:09 - Medications Medications: Current Medications Acetaminophen (Tylenol 325mg Tab) 650 mg PO Q6H PRN PRN Reason: Fever >100.4 F Last Admin: 04/21/17 16:26 Dose: 650 mg Acetaminophen (Tylenol 325mg Tab) 650 mg PO Q6H PRN PRN Reason: Headache Aspirin (Aspirin Chewable) 81 mg PO DAILY [facility] Last Admin: 04/21/17 10:38 Dose: 81 mg Atorvastatin Calcium (Lipitor) 40 mg PO DIN [facility] Last Admin: 04/21/17 17:47 Dose: 40 mg Clonidine HCl (Catapres) 0.1 mg PO Q8 PRN PRN Reason: high blood pressure Sodium Chloride (Sodium Chloride 0.9%) 1,000 mls @ 100 mls/hr IV .Q10H [facility] Last Admin: 04/21/17 09:24 Dose: 100 mls/hr Piperacillin Sod/Tazobactam Sod (Zosyn 4.5 Gm In Ns 100ml) 4.5 gm in 100 mls @ 200 mls/hr IVPB Q6 [facility] PRN Reason: Protocol Stop: 04/28/17 12:01 Last Admin: 04/21/17 17:48 Dose: 200 mls/hr Lisinopril (Zestril) 10 mg PO DAILY [facility] Metoprolol Succinate (Toprol Xl) 100 mg PO BRK [facility] Last Admin: 04/21/17 10:38 Dose: 100 mg Morphine Sulfate (Morphine) 4 mg IVP Q4H PRN PRN Reason: Pain, moderate (4-7) Last Admin: 04/21/17 10:44 Dose: 4 mg Ondansetron HCl (Zofran Inj) 4 mg IVP Q6H PRN PRN Reason: Nausea/Vomiting Pantoprazole Sodium (Protonix Inj) 40 mg IVP DAILY [facility] Last Admin: 04/21/17 09:21 Dose: 40 mg Physical Exam - Constitutional Appears: Non-toxic, No Acute Distress - Head Exam Head Exam: ATRAUMATIC, NORMAL INSPECTION, NORMOCEPHALIC - Eye Exam Eye Exam: EOMI, Normal appearance - ENT Exam ENT Exam: Mucous Membranes Moist, Normal Exam - Neck Exam Neck exam: Positive for: Normal Inspection - Respiratory Exam Respiratory Exam: Clear to Auscultation Bilateral, NORMAL BREATHING PATTERN - Cardiovascular Exam Cardiovascular Exam: REGULAR RHYTHM, +S1, +S2 - GI/Abdominal Exam GI & Abdominal Exam: Guarding (RUQ), Normal Bowel Sounds, Soft, Tenderness (RUQ) . absent: Distended (obese), Firm, Rebound, Rigid - Extremities Exam Extremities exam: Positive for: normal inspection. Negative for: pedal edema - Neurological Exam Neurological exam: Alert, CN II-XII Intact, Oriented x3 - Psychiatric Exam Psychiatric exam: Normal Affect, Normal Mood - Skin Skin Exam: Dry, Intact, Normal Color, Warm Results - Vital Signs Recent Vital Signs: Last Vital Signs Temp 99.5 F 04/21/17 17:50 Pulse 85 04/21/17 18:00 Resp 20 04/21/17 17:50 BP 179/92 H 04/21/17 17:50 Pulse Ox 97 04/21/17 17:50 - Labs Result Diagrams: 04/21/17 09:10 04/21/17 09:10 Labs: Laboratory Results - last 24 hr 04/20/17 04/21/17 04/21/17 21:35 09:10 09:10 WBC 16.2 H RBC 4.27 Hgb 13.5 L Hct 38.7 L MCV 90.6 MCH 31.6 MCHC 34.9 RDW 13.5 Plt Count 174 MPV 10.4 Gran % 79.3 H Lymph % (Auto) 8.6 L [place] % (Auto) 12.0 H Eos % (Auto) 0.0 L Baso % (Auto) 0.1 Gran # 12.85 H Lymph # 1.4 [place] # 1.9 H Eos # 0.0 Baso # 0.02 pO2 145 H VBG pH 7.42 VBG pCO2 37.0 L VBG HCO3 24.0 VBG Total CO2 25.1 VBG O2 Sat (Calc) 99.2 H VBG Base Excess -0.2 L VBG Potassium 4.0 Sodium 135.0 137 Chloride 103.0 105 Glucose 134 H Lactate 2.0 FiO2 21.0 Potassium 4.0 Carbon Dioxide 24 Anion Gap 12 BUN 16 Creatinine 0.8 Est GFR ( Amer) > 60 Est GFR (Non-Af Amer) > 60 Random Glucose 127 H Calcium 8.2 L Total Bilirubin 1.8 H AST 36 ALT 44 Alkaline Phosphatase 80 Total Protein 7.1 Albumin 3.6 Globulin 3.5 Albumin/Globulin Ratio 1.0 L Venous Blood Potassium 4.0 Assessment & Plan - Assessment and Plan (Free Text) Assessment: 76M w/biliary colic consulted for 2nd surgical opinion Plan: Leukocytosis of 16.2 from 14.4 Febrile over last 24H, Tmax 101.3 T bili 1.8 from 0.9 HIDA positive for acute cholecystitis Ab U/S negative CT of ab w/ distended GB, no ductal dilatation Anti-emetics Pain control NPO IVF Abx DVT/GI ppx GI consulted- recommendation for cholecystectomy if pt continues to have fevers and leukocytosis Further recs as per Dr. Laureen GONZALES surgical attending Mamie, PGY-1 - Date & Time Date: 04/21/17 Time: 21:54
--- NOTE | 2017-04-22 01:20 | CP.PCM.PN ---
Subjective - Date & Time of Evaluation Date of Evaluation: 04/22/17 Time of Evaluation: 01:19 - Subjective Subjective: S:It was requested to insert a heparin lock. Patient has no complaints now. Pertinent medical record reviewed. O: Last Vital Signs 3 Temp 99.5 F 04/21/17 17:50 Pulse 85 04/21/17 18:00 Resp 20 04/21/17 17:50 BP 179/92 H 04/21/17 17:50 Pulse Ox 97 04/21/17 17:50 Awake, alert, not in distress. LUNGS:Normal breathing pattern. A:Poor venous access. Encounter for intravenous line placement. Elevated blood pressure reading. P:Observation BP now is 138/74. # 22 angiocath was inserted in right hand dorsum. Objective - Vital Signs/Intake and Output Vital Signs (last 24 hours): Temp Pulse Resp BP Pulse Ox 99.5 F 85 20 179/92 H 97 04/21/17 17:50 04/21/17 18:00 04/21/17 17:50 04/21/17 17:50 04/21/17 17:50 Intake and Output: 04/21/17 04/22/17 18:59 06:59 Intake Total 0 Balance 0 - Medications Medications: Current Medications Acetaminophen (Tylenol 325mg Tab) 650 mg PO Q6H PRN PRN Reason: Fever >100.4 F Last Admin: 04/21/17 16:26 Dose: 650 mg Acetaminophen (Tylenol 325mg Tab) 650 mg PO Q6H PRN PRN Reason: Headache Aspirin (Aspirin Chewable) 81 mg PO DAILY [facility] Last Admin: 04/21/17 10:38 Dose: 81 mg Atorvastatin Calcium (Lipitor) 40 mg PO DIN [facility] Last Admin: 04/21/17 17:47 Dose: 40 mg Clonidine HCl (Catapres) 0.1 mg PO Q8 PRN PRN Reason: high blood pressure Sodium Chloride (Sodium Chloride 0.9%) 1,000 mls @ 100 mls/hr IV .Q10H [facility] Last Admin: 04/21/17 09:24 Dose: 100 mls/hr Piperacillin Sod/Tazobactam Sod (Zosyn 4.5 Gm In Ns 100ml) 4.5 gm in 100 mls @ 200 mls/hr IVPB Q6 [facility] PRN Reason: Protocol Stop: 04/28/17 12:01 Last Admin: 04/21/17 23:17 Dose: 200 mls/hr Lisinopril (Zestril) 10 mg PO DAILY [facility] Metoprolol Succinate (Toprol Xl) 100 mg PO BRK [facility] Last Admin: 04/21/17 10:38 Dose: 100 mg Morphine Sulfate (Morphine) 4 mg IVP Q4H PRN PRN Reason: Pain, moderate (4-7) Last Admin: 04/21/17 10:44 Dose: 4 mg Ondansetron HCl (Zofran Inj) 4 mg IVP Q6H PRN PRN Reason: Nausea/Vomiting Pantoprazole Sodium (Protonix Inj) 40 mg IVP DAILY [facility] Last Admin: 04/21/17 09:21 Dose: 40 mg - Labs Labs: 04/21/17 09:10 04/21/17 09:10 PT 11.0 Seconds (9.9-11.8) 04/20/17 18:15 INR 1.02 (0.93-1.08) 04/20/17 18:15 APTT 25.9 Seconds (23.7-30.8) 04/20/17 18:15
[2017-04-22] MEDS: Piperacill/Tazo 4.5gm in NS 4.5 GM/100 ML BAG IVPB SCH ×4 (05:28→23:15)
[2017-04-22 07:41] LABS: BASO # 0.01 K/mm3 (0.0-2.0); BASO % 0.1 % (0.0-3.0); EOS % 0.1 % (1.5-5.0); GRAN # 13.39 (1.4-6.5); GRAN % 77.4 % (50.0-68.0); HEMATOCRIT 37.3 % (42.0-52.0); LYMPH # 1.9 (1.2-3.4); LYMPH % 10.7 % (22.0-35.0); MEAN CELL VOLUME 91.6 fl (80.0-105.0); MEAN CORPUSCULAR HGB CONC 33.8 g/dl (31.0-37.0); MEAN PLATELET VOLUME 10.6 fl (7.0-11.0); MONO % 11.7 % (1.0-6.0); WHITE BLOOD COUNT 17.3 10^3/ul (4.5-11.0)
[2017-04-22 07:49] LABS: ALB/GLOB RATIO 0.8 (1.1-1.8); ALKALINE PHOSPHATASE 79 U/L (38-126); ALT/SGPT 47 U/L (7-56); AST/SGOT 37 U/L (17-59); BILIRUBIN,TOTAL 2.4 mg/dL (0.2-1.3); BLOOD UREA NITROGEN 19 mg/dL (7-21); CALCIUM 7.5 mg/dL (8.4-10.5); CARBON DIOXIDE 24 mmol/L (21-33); CHLORIDE 105 mmol/L (95-110); GFR AFRICAN-AMERICAN > 60; GLUCOSE,RANDOM 109 mg/dL (70-110); INR 1.27 (0.93-1.08); PARTIAL THROMBOPLASTIN TIME 29.2 Seconds (23.7-30.8); POTASSIUM 4.1 mmol/L (3.6-5.0); SODIUM 136 mmol/L (132-148)
[2017-04-22] MEDS: Metoprolol Succinate 100 mg XL Tab PO SCH (08:34)
[2017-04-22] MEDS: Morphine 4 mg/ml ISec IVP PRN (10:17)
--- NOTE | 2017-04-22 11:18 | PN ---
SUBJECTIVE: The patient was seen and examined at bedside on the general medical moralez. No acute events overnight. He remains afebrile and hemodynamically stable. He continues to endorse persistent right upper quadrant abdominal pain, but it is improved since admission. The patient also underwent a HIDA scan which was positive and demonstrated cystic duct occlusion presumptive for acute cholecystitis. The family had requested a second surgical opinion and a consultation was placed with Dr. Garduno as per family request. After evaluation the patient was scheduled for cholecystectomy in agreement with Dr. Ogden's initial assessment. Otherwise, this morning the patient states he feels okay and offers no complaints. OBJECTIVE: VITAL SIGNS: Temperature 98.9, pulse 77, blood pressure 150/70, respiratory rate 18, and oxygen saturation 96% on room air. GENERAL: Morbidly obese man lying in bed, in no apparent distress. HEENT: PERRL. EOMI. No scleral icterus. No conjunctival pallor. NECK: No JVD. No bruits. LUNGS: Clear to auscultation. CARDIOVASCULAR: Regular rate and rhythm. Normal S1 and S2. ABDOMEN: Normoactive bowel sounds. Soft, tender to palpation to right upper quadrant with voluntary guarding. No rigidity. No tympany. EXTREMITIES: No edema. NEUROLOGIC: Awake, alert, and oriented x3. No focal motor deficits. LABORATORY DATA: WBC 17.3 with 77% neutrophils, hemoglobin 12.6, hematocrit 37 , and platelets 144. Chemistry reviewed and unremarkable. Total bilirubin 2.4. Blood cultures with no growth to date. ASSESSMENT: The patient is a 76-year-old man with past medical history of coronary artery disease status post myocardial infarction status post coronary artery bypass graft, hypertension, hyperlipidemia and morbid obesity who presented to [facility] with a several hour history of acute onset of severe sharp stabbing right upper quadrant abdominal pain and who is admitted to the general medical moralez for continued pain control and management of sepsis secondary to acute cholecystitis. PLAN: 1. Sepsis secondary to acute cholecystitis. Input from Dr. Louis of infectious disease noted and appreciated and the patient remains on Zosyn 4.5 g IV q. [address] Ogden and Dr. Garduno also noted. The patient scheduled for cholecystectomy. 2. Acute cholecystitis. Continue with care as per number 1. As above, the patient is pending cholecystectomy. 3. CAD status post NV status post CABG. The patient remains hemodynamically stable and chest pain free. Continue with Aspirin 81 mg p.o. daily, Lipitor 40 mg p.o. daily and Toprol XL 100 mg p.r.n. 4. Hypertension. Blood pressure slightly elevated and this may be secondary to continue with IV fluid infusion and abdominal pain. Continue with current outpatient antihypertensive and the patient was started on Clonidine 0.1 mg q. 8 hours as needed. 5. Hyperlipidemia. The patient is on Crestor 20 mg at home, however, is not on formulary in the hospital, thus he was started on Lipitor 40 mg p.o. daily. 6. Morbid obesity. The patient was again counseled on dietary changes and lifestyle modifications. 7. Prophylaxis. Continue with Protonix for GI prophylaxis and Venodyne for DVT prophylaxis. CODE STATUS: FULL CODE. Ruben Boswell MD MTDD
[2017-04-22] MEDS ORDERED: Propofol 10 mg/ml Inj (20 ML) ONE ×2 (12:12→15:00)
[2017-04-22] MEDS ORDERED: ePHEDrine 50 mg/ml Inj ONE (12:12)
[2017-04-22] MEDS ORDERED: Succinylcholine 200 mg/10 ml Inj IV ONE (12:13)
[2017-04-22] MEDS ORDERED: Phenylephrine 10 mg/ml Inj ONE (12:13)
[2017-04-22] MEDS ORDERED: Iohexol 240 (50 ml) ONE (12:32)
[2017-04-22] MEDS ORDERED: Bupivacaine 0.5% Inj(30mL) ONE (12:32)
--- NOTE | 2017-04-22 13:34 | CP.PCM.PN ---
Subjective - Date & Time of Evaluation Date of Evaluation: 04/22/17 Time of Evaluation: 10:55 - Subjective Subjective: Comfortable, still with RUQ pain but less, for surgery later today, no fevers. Objective - Vital Signs/Intake and Output Vital Signs (last 24 hours): Temp Pulse Resp BP Pulse Ox 99.9 F H 75 20 161/59 H 96 04/21/17 07:49 04/21/17 10:38 04/21/17 07:49 04/21/17 10:38 04/21/17 07:49 Intake and Output: 04/21/17 04/21/17 06:59 18:59 Intake Total 120 0 Balance 120 0 - Medications Medications: Current Medications Acetaminophen (Tylenol 325mg Tab) 650 mg PO Q6H PRN PRN Reason: Fever >100.4 F Last Admin: 04/20/17 22:44 Dose: 650 mg Acetaminophen (Tylenol 325mg Tab) 650 mg PO Q6H PRN PRN Reason: Headache Aspirin (Aspirin Chewable) 81 mg PO DAILY [facility] Last Admin: 04/21/17 10:38 Dose: 81 mg Atorvastatin Calcium (Lipitor) 40 mg PO DIN [facility] Sodium Chloride (Sodium Chloride 0.9%) 1,000 mls @ 100 mls/hr IV .Q10H [facility] Last Admin: 04/21/17 09:24 Dose: 100 mls/hr Piperacillin Sod/Tazobactam Sod (Zosyn 4.5 Gm In Ns 100ml) 4.5 gm in 100 mls @ 200 mls/hr IVPB Q6 [facility] PRN Reason: Protocol Stop: 04/28/17 12:01 Last Admin: 04/21/17 12:28 Dose: 200 mls/hr Lisinopril (Zestril) 10 mg PO DAILY [facility] Metoprolol Succinate (Toprol Xl) 100 mg PO BRK [facility] Last Admin: 04/21/17 10:38 Dose: 100 mg Morphine Sulfate (Morphine) 4 mg IVP Q4H PRN PRN Reason: Pain, moderate (4-7) Last Admin: 04/21/17 10:44 Dose: 4 mg Ondansetron HCl (Zofran Inj) 4 mg IVP Q6H PRN PRN Reason: Nausea/Vomiting Pantoprazole Sodium (Protonix Inj) 40 mg IVP DAILY [facility] Last Admin: 04/21/17 09:21 Dose: 40 mg - Labs Labs: 04/21/17 09:10 04/21/17 09:10 PT 11.0 Seconds (9.9-11.8) 04/20/17 18:15 INR 1.02 (0.93-1.08) 04/20/17 18:15 APTT 25.9 Seconds (23.7-30.8) 04/20/17 18:15 - Constitutional Appears: Non-toxic, No Acute Distress - Head Exam Head Exam: NORMAL INSPECTION - ENT Exam ENT Exam: Mucous Membranes Moist - Neck Exam Neck Exam: absent: Lymphadenopathy, Meningismus - Respiratory Exam Respiratory Exam: Decreased Breath Sounds - Cardiovascular Exam Cardiovascular Exam: +S1, +S2 - GI/Abdominal Exam GI & Abdominal Exam: Soft. absent: Tenderness Assessment and Plan - Assessment and Plan (Free Text) Plan: Assessment sepsis due to acute cholecystitis HTN CAD S/P CABG obesity with BMI 38 S/P cataract surgery Plan continue Zosyn day 2; HIDA scan is positive - for cholecystectomy later will continue to monitor clinically
--- NOTE | 2017-04-22 13:40 | PN ---
DATE: 04/22/2017 SUBJECTIVE: The patient is lying in bed. He still complains of right upper quadrant abdominal pain. He denies any nausea or vomiting. He did have a low grade temperature to 100.3 last night. OBJECTIVE: VITAL SIGNS: Reveal temperature of 98.9, blood pressure 150/70, heart rate of 77. HEENT: Reveal sclerae to be white. Conjunctivae pink. NECK: Supple. CHEST: Reveal lungs to be clear. HEART: Reveals a regular rate and rhythm. ABDOMEN: Soft. He does have right upper quadrant tenderness with positive Hair's sign. EXTREMITIES: Show no edema. LABORATORY DATA: Reveal white blood cell count 17.3, hemoglobin 12.6. Chemistries reveal; AST, ALT, alk phos were all normal. Total bilirubin is up to 2.4. Hepatobiliary scan from yesterday shows nonvisualization of the gallbladder in 4 hours. IMPRESSION: A 76-year-old male with coronary artery disease, hypertension with right upper quadrant abdominal pain, fevers, elevated white blood cell count with a hepatobiliary scan showing cystic duct obstruction. I suspect that the patient has an acalculous cholecystitis. RECOMMENDATIONS: I have discussed his case with Dr. Ogden he plans on taking the patient to the operating room for a laparoscopic cholecystectomy. Buck Hunt MD
[2017-04-22] MEDS ORDERED: Lactated Ringer's 1,000 ML IV SCH (13:55)
[2017-04-22] MEDS ORDERED: HYDROmorphone 0.5 mg/0.5 ml ISec IVP PRN ×2 (13:55→15:20)
[2017-04-22] MEDS ORDERED: Neostigmine Methylsulfate 3mg/3ml Syringe IV ONE ×2 (14:50→14:51)
--- NOTE | 2017-04-22 15:03 | RAD ---
PROCEDURE: Operative cholangiogram HISTORY: ? CBD OBST. COMPARISON: TECHNIQUE: Fluoroscopy was provided in the operating room. 44.5 seconds of fluoro time were utilized. Four images were submitted FINDINGS: Contrast flows into the duodenum without obstruction. There are no filling defects IMPRESSION: As above
--- NOTE | 2017-04-22 15:27 | PCM.SURG1 ---
Surgeon's Initial Post Op Note - Surgeon's Notes Surgeon: Dr. Ogden Curb Machine Operator: Dr. Kelley PGY-4, Dr. Merrill PGY-2 Type of Anesthesia: General Endo Anesthesia Administered By: Dr. Dickens Pre-Operative Diagnosis: chronic cholecystitis Operative Findings: see operative report Post-Operative Diagnosis: see operative report Operation Performed: laparoscopic cholecystectomy Specimen/Specimens Removed: gallbladder Estimated Blood Loss: EBL {In ML}: 100 Blood Products Given: N/A Drains Used: No Drains Post-Op Condition: Good Date of Surgery/Procedure: 04/22/17 Time of Surgery/Procedure: 15:28
[2017-04-23] MEDS: Piperacill/Tazo 4.5gm in NS 4.5 GM/100 ML BAG IVPB SCH ×4 (05:49→23:38)
[2017-04-23 06:29] LABS: BASO # 0.01 K/mm3 (0.0-2.0); BASO % 0.1 % (0.0-3.0); EOS % 0.1 % (1.5-5.0); GRAN # 10.64 (1.4-6.5); GRAN % 79.7 % (50.0-68.0); HEMATOCRIT 36.1 % (42.0-52.0); LYMPH # 1.2 (1.2-3.4); LYMPH % 9.3 % (22.0-35.0); MEAN CELL VOLUME 92.6 fl (80.0-105.0); MEAN CORPUSCULAR HGB CONC 33.5 g/dl (31.0-37.0); MONO # 1.4 (0.1-0.6); MONO % 10.8 % (1.0-6.0); RED CELL DISTRIBUTION WIDTH 14.6 % (11.5-14.5); WHITE BLOOD COUNT 13.3 10^3/ul (4.5-11.0)
[2017-04-23 06:39] LABS: ALB/GLOB RATIO 0.8 (1.1-1.8); ALKALINE PHOSPHATASE 103 U/L (38-126); ALT/SGPT 50 U/L (7-56); AST/SGOT 46 U/L (17-59); BILIRUBIN,TOTAL 1.6 mg/dL (0.2-1.3); BLOOD UREA NITROGEN 23 mg/dL (7-21); CALCIUM 7.9 mg/dL (8.4-10.5); CARBON DIOXIDE 25 mmol/L (21-33); CHLORIDE 107 mmol/L (98-107); GFR AFRICAN-AMERICAN > 60; GLUCOSE,RANDOM 115 mg/dL (70-110); POTASSIUM 3.9 mmol/L (3.6-5.0); SODIUM 139 mmol/L (132-148); TOTAL PROTEIN 6.6 g/dL (5.8-8.3)
--- NOTE | 2017-04-23 09:27 | CP.PCM.PN ---
Subjective - Date & Time of Evaluation Date of Evaluation: 04/23/17 Time of Evaluation: 09:24 - Subjective Subjective: General Surgery progress note for Dr. Ogden PT S&E at bedside. CHASE. Patient states he's feeling much better and would like to eat. Patient denies F/C, N/V, Flatus, BM Objective - Vital Signs/Intake and Output Vital Signs (last 24 hours): Temp Pulse Resp BP Pulse Ox 97.7 F 89 22 165/87 H 93 L 04/23/17 07:57 04/23/17 07:57 04/23/17 07:57 04/23/17 07:57 04/23/17 07:57 Intake and Output: 04/23/17 04/23/17 06:59 18:59 Intake Total 0 Output Total 425 Balance -425 - Medications Medications: Current Medications Acetaminophen (Tylenol 325mg Tab) 650 mg PO Q6H PRN PRN Reason: Fever >100.4 F Last Admin: 04/21/17 16:26 Dose: 650 mg Acetaminophen (Tylenol 325mg Tab) 650 mg PO Q6H PRN PRN Reason: Headache Aspirin (Aspirin Chewable) 81 mg PO DAILY [facility] Last Admin: 04/22/17 10:13 Dose: 81 mg Atorvastatin Calcium (Lipitor) 40 mg PO DIN [facility] Last Admin: 04/22/17 17:49 Dose: 40 mg Clonidine HCl (Catapres) 0.1 mg PO Q8 PRN PRN Reason: high blood pressure Heparin Sodium (Porcine) (Heparin) 5,000 units SC Q12 [facility] PRN Reason: Protocol Hydromorphone HCl (Dilaudid) 0.5 mg IVP Q4H PRN PRN Reason: Pain, moderate (4-7) Sodium Chloride (Sodium Chloride 0.9%) 1,000 mls @ 100 mls/hr IV .Q10H [facility] Last Admin: 04/21/17 09:24 Dose: 100 mls/hr Piperacillin Sod/Tazobactam Sod (Zosyn 4.5 Gm In Ns 100ml) 4.5 gm in 100 mls @ 200 mls/hr IVPB Q6 [facility] PRN Reason: Protocol Stop: 04/28/17 12:01 Last Admin: 04/23/17 05:49 Dose: 200 mls/hr Lisinopril (Zestril) 10 mg PO DAILY [facility] Last Admin: 04/22/17 10:13 Dose: 10 mg Metoprolol Succinate (Toprol Xl) 100 mg PO BRK [facility] Last Admin: 04/22/17 08:34 Dose: 100 mg Ondansetron HCl (Zofran Inj) 4 mg IVP Q6H PRN PRN Reason: Nausea/Vomiting Ondansetron HCl (Zofran Inj) 4 mg IVP ONCE PRN PRN Reason: Nausea/Vomiting Pantoprazole Sodium (Protonix Inj) 40 mg IVP DAILY [facility] Last Admin: 04/22/17 10:13 Dose: 40 mg - Labs Labs: 04/23/17 06:13 04/23/17 06:13 PT 13.7 Seconds (9.9-11.8) H 04/22/17 07:30 INR 1.27 (0.93-1.08) H 04/22/17 07:30 APTT 29.2 Seconds (23.7-30.8) 04/22/17 07:30 Assessment and Plan - Assessment and Plan (Free Text) Assessment: 76M cholecystitis s/p laparoscopic cholecystectomy POD#1 Plan: diet: CLD f/u diet tolerance c/w current medical management c/w curren pain control c/w abx c/w Heparin using Incentive spirometer encourage OOBTC/ambulation Colette Kern DO PGY1
--- NOTE | 2017-04-23 10:11 | PN ---
SUBJECTIVE: The patient was seen and examined at bedside on the general medical moralez. No acute events overnight. The patient is status post laparoscopic cholecystectomy secondary to acalculous cholecystitis. He tolerated the procedure well and this morning he reports mild discomfort to the RUQ but states that it is significantly improved since admission. His only other complaint is that of some dry mouth but otherwise he denies fevers, chills , rigors, nausea, vomiting, or diarrhea. OBJECTIVE: VITAL SIGNS: Temperature 97.7, pulse 89, blood pressure 165/87, respiratory rate 22, and oxygen saturation 93% on room air. GENERAL: Obese man lying in bed, in no apparent distress. HEENT: PERRL. EOMI. No scleral icterus. No conjunctival pallor. NECK: No JVD. No bruits. LUNGS: Clear to auscultation. CARDIOVASCULAR: Regular rate and rhythm. Normal S1 and S2. ABDOMEN: Hypoactive bowel sounds, soft, mild tenderness to palpation to RUQ with voluntary guarding (significantly improved). No rigidity, no tympany. Laparoscopic surgical scars appear clean, dry, and intact. EXTREMITIES: No edema. NEUROLOGIC: Awake, alert, and oriented x3. No focal motor deficits. LABORATORY DATA: WBC 13.3 with 79% neutrophils, hemoglobin 12, hematocrit 36, and platelets 136. Chemistry reviewed and unremarkable. Total bilirubin 1.6. Blood cultures with no growth to date. ASSESSMENT: The patient is a 76-year-old man with past medical history of CAD s /p MD s/p CABG, hypertension, hyperlipidemia and morbid obesity who presented to [facility] with a several hour history of acute onset of severe sharp stabbing RUQ quadrant abdominal pain and who was admitted to the general medical moralez for continued pain control and management of sepsis secondary to acute acalculous cholecystitis who is now status post laparoscopic cholecystectomy POD #1. PLAN: 1. Acalculous cholecystitis s/p laparoscopic cholecystectomy POD #1. Continue with postoperative care as per the surgical team. We will defer advancing diet to the surgical team. 2. Sepsis secondary to acute acalculous cholecystitis, resolving. Input from Dr. Louis of infectious disease noted and appreciated and the patient remains on Zosyn 4.5 g IV q.6 hours. Continue to monitor for fever and leukocytosis. 3. CAD, s/p MD s/p CABG. The patient remains hemodynamically stable and chest pain free. Continue with Aspirin 81 mg p.o. daily, Lipitor 40 mg p.o. daily, and Toprol-XL 100 mg p.o. daily. 4. Hypertension. Blood pressure improved. Continue with current medications. 5. Hyperlipidemia. He is on Crestor 20 mg at home however it is not on formulary thus he was started on Lipitor 40 mg p.o. daily. 6. Morbid obesity. The patient encourage to see a spray crew and counseled on dietary changes. 7. Prophylaxis. Continue with Protonix for GI prophylaxis and Venodyne for DVT prophylaxis. CODE STATUS: FULL CODE. Ruben Boswell MD MTDD
[2017-04-23] MEDS: Metoprolol Succinate 100 mg XL Tab PO SCH (11:06)
[2017-04-23] MEDS ORDERED: Oxycodone/Acetaminophen 5/325 mg Tab PO PRN ×2 (11:33)
[2017-04-23] MEDS: Sodium Chloride 0.9% 1,000 ML IV SCH (15:30)
--- NOTE | 2017-04-23 15:34 | PN ---
DATE: 04/23/2017 SUBJECTIVE: The patient is lying in bed. He feels better. Abdominal pain is less. He underwent a laparoscopic cholecystectomy yesterday. OBJECTIVE: VITAL SIGNS: Reveal temperature of 97.7, blood pressure 127/68, heart rate of 86. HEENT: Revealed sclerae to be white. Conjunctivae pink. NECK: Supple. CHEST: Revealed lungs to be clear. HEART: Exam reveals a regular rate and rhythm. ABDOMEN: Obese, soft. The laparoscopic puncture sites are clean without drainage. EXTREMITIES: Show no edema. LABORATORY DATA: Revealed white blood cell count down to 13.3, hemoglobin 12.1. Chemistries reveal normal AST, ALT, alk phos. Total bilirubin is down to 1.6. Intraoperative cholangiogram was negative for any filling defects. IMPRESSION: A 76-year-old male with coronary artery disease, admitted to the hospital with severe right upper quadrant abdominal pain, fever, leukocytosis with clinical presentation of acalculous cholecystitis. The patient underwent a laparoscopic cholecystectomy yesterday. RECOMMENDATIONS: Advance diet as tolerated as per Surgery. Buck Hunt MD
--- NOTE | 2017-04-23 16:19 | PN ---
DATE: 04/23/2017 SUBJECTIVE: The patient is in bed, in no acute distress, was seen earlier in [facility], bed 1. He did have fevers yesterday, although today he has no fevers. PHYSICAL EXAMINATION: VITAL SIGNS: Temperature is 98, T-max yesterday was 102.6, blood pressure is 165/80, respiratory rate of 20, and heart rate of 113. HEENT: Unremarkable. NECK: Supple. LUNGS: Have decreased breath sounds. ABDOMEN: Mild tenderness in the right upper quadrant area. No rebound, no guarding, no masses. LABORATORY EXAMINATION: Reveals a white count of 13,000, hemoglobin of 12, and platelets of 136. Chemistry reveals a BUN of 23 and creatinine of 1.1. Urinalysis is noted. Serology is noted. Microbiology reveals the blood cultures are negative. Review of orders reveals that he is on Zosyn. ASSESSMENT AND PLAN: A 76-year-old morbidly obese male with a body mass index of 38 with sepsis due to acute cholecystitis and hypertension, coronary artery disease, on Zosyn, status post procedure day #1. The patient had a laparoscopic cholecystectomy yesterday by Dr. Freddy Ogden. We will follow WBC count and clinically. Quinton Balderas MD
--- NOTE | 2017-04-23 16:47 | OP ---
PROCEDURE DATE: 04/22/2017 PREOPERATIVE DIAGNOSES: [id number] cholecystitis and cholelithiasis. POSTOPERATIVE DIAGNOSES: [id number] cholecystitis and cholelithiasis. OPERATION PERFORMED: Laparoscopic cholecystectomy and cholangiogram. SURGEON: Kenn Ogden MD CEMENTER: Dr. Kelley and Dr. Julien Merrill. ESTIMATED BLOOD LOSS: About 150 mL. DESCRIPTION OF PROCEDURE: In the operating room, the patient was identified by name, number, procedure, laterality, my sal, the consent, and his birthday. After the successful timeout, the abdomen was prepped and draped in usual manner. A supraumbilical incision was made through skin and subcutaneous tissue dissecting down to the fascia. Veress needle was inserted. The opening pressure was normal. A 2.5 liters were given to a pressure of about 10. The Visiport was placed without issue. The gallbladder was inflamed, occluded by omentum. Placed in the gallbladder position with the head up and rolled toward the microgrinder operator. Three 5 mm ports were placed, one in the xyphoid and two lateral. We tried to aspirate the gallbladder through a needle and the xyphoid port had to be repeated. This allowed us to grab the gallbladder, sweeping the omentum away, at the fundus and then the infundibulum. The peritoneum was swept down to expose very nicely the cystic duct. Cystic artery was a little bit sadder and was eventually dissected and cleaned. The view of safety was seen. Thus, we peeled away the gallbladder from the liver. The liver bed was seen very nicely. The cystic duct was cleaned and clip was placed on it. It was then opened. Cholangiogram showed initially the catheter was in the common duct going right into the duodenum. The balloon was deflated as we injected and the left and right hepatic ducts and a long common hepatic duct were seen. Cystic duct was well away from all this. The catheter was removed and under direct vision, the cystic duct was triply clipped and divided, as was the artery. The gallbladder was taken off the liver bed using the Harmonic and the spatula. We entered the gallbladder several times and required dissecting through the hole to remove the entire gallbladder, which was eventually achieved. The liver bed was somewhat raw at the end and required oxidized cellulose. Eventually, the gallbladder was removed. Hemostasis was achieved using cautery and the aforementioned hematinic. The gallbladder was placed in the bag and removed without dilation. It was closed with individual stitches. Incisions were irrigated and dried very nicely and the wounds were injected with Marcaine. The umbilicus was closed under direct vision with subcuticular stitches of Vicryl and PDS and sealed with Dermabond. The patient was taken to the recovery room in good condition after sponge and needle count was claimed correct. Kenn Ogden MD
[2017-04-24] MEDS: Sodium Chloride 0.9% 1,000 ML IV SCH (01:18)
[2017-04-24 04:52] VITALS: RESP 20
[2017-04-24] MEDS: Piperacill/Tazo 4.5gm in NS 4.5 GM/100 ML BAG IVPB SCH ×2 (05:46→11:50)
[2017-04-24 06:16] LABS: BASO # 0.01 K/mm3 (0.0-2.0); BASO % 0.1 % (0.0-3.0); EOS # 0.1 (0.0-0.7); EOS % 1.1 % (1.5-5.0); GRAN # 8.69 (1.4-6.5); GRAN % 76.6 % (50.0-68.0); HEMATOCRIT 33.6 % (42.0-52.0); LYMPH # 1.3 (1.2-3.4); LYMPH % 11.5 % (22.0-35.0); MEAN CELL VOLUME 93.1 fl (80.0-105.0); MEAN CORPUSCULAR HEMOGLOBIN 30.7 pg (25.0-35.0); MONO # 1.2 (0.1-0.6); MONO % 10.7 % (1.0-6.0); RED CELL DISTRIBUTION WIDTH 14.3 % (11.5-14.5); WHITE BLOOD COUNT 11.3 10^3/ul (4.5-11.0)
[2017-04-24 07:00] LABS: ALB/GLOB RATIO 0.8 (1.1-1.8); ALKALINE PHOSPHATASE 98 U/L (38-126); ALT/SGPT 44 U/L (7-56); AST/SGOT 36 U/L (17-59); BILIRUBIN,TOTAL 1.4 mg/dL (0.2-1.3); BLOOD UREA NITROGEN 22 mg/dL (7-21); CALCIUM 7.4 mg/dL (8.4-10.5); CARBON DIOXIDE 22 mmol/L (21-33); CHLORIDE 108 mmol/L (95-110); GFR AFRICAN-AMERICAN > 60; GLUCOSE,RANDOM 103 mg/dL (70-110); POTASSIUM 3.7 mmol/L (3.6-5.0); SODIUM 138 mmol/L (132-148); TOTAL PROTEIN 6.4 g/dL (5.8-8.3)
--- NOTE | 2017-04-24 08:15 | CP.PCM.PN ---
Subjective - Date & Time of Evaluation Date of Evaluation: 04/24/17 Time of Evaluation: 08:08 - Subjective Subjective: General Surgery Note for Dr. Ogden PT S&E at bedside. CHASE. Patient states he tolerated his diet yesterday. Pain is better. Patient is walking around and passing gas. No bowel movements. Objective - Vital Signs/Intake and Output Vital Signs (last 24 hours): Temp Pulse Resp BP Pulse Ox 99.6 F 69 20 164/86 H 94 L 04/24/17 04:51 04/24/17 06:00 04/24/17 04:51 04/24/17 04:51 04/24/17 04:51 Intake and Output: 04/24/17 04/24/17 06:59 18:59 Intake Total 1550 Output Total 400 Balance 1150 - Medications Medications: Current Medications Aspirin (Aspirin Chewable) 81 mg PO DAILY [facility] Last Admin: 04/23/17 11:07 Dose: 81 mg Atorvastatin Calcium (Lipitor) 40 mg PO DIN [facility] Last Admin: 04/23/17 17:05 Dose: 40 mg Clonidine HCl (Catapres) 0.1 mg PO Q8 PRN PRN Reason: high blood pressure Last Admin: 04/23/17 17:04 Dose: 0.1 mg Heparin Sodium (Porcine) (Heparin) 5,000 units SC Q12 [facility]NET[facility] PRN Reason: Protocol Last Admin: 04/23/17 21:27 Dose: 5,000 units Sodium Chloride (Sodium Chloride 0.9%) 1,000 mls @ 100 mls/hr IV .Q10H [facility] Last Admin: 04/24/17 01:18 Dose: 100 mls/hr Piperacillin Sod/Tazobactam Sod (Zosyn 4.5 Gm In Ns 100ml) 4.5 gm in 100 mls @ 200 mls/hr IVPB Q6 [facility] PRN Reason: Protocol Stop: 04/28/17 12:01 Last Admin: 04/24/17 05:46 Dose: 200 mls/hr Lisinopril (Zestril) 10 mg PO DAILY [facility] Last Admin: 04/23/17 11:07 Dose: 10 mg Metoprolol Succinate (Toprol Xl) 100 mg PO BRK [facility] Last Admin: 04/23/17 11:06 Dose: 100 mg Ondansetron HCl (Zofran Inj) 4 mg IVP Q6H PRN PRN Reason: Nausea/Vomiting Oxycodone/Acetaminophen (Percocet 5/325 Mg Tab) 1 tab PO Q4H PRN PRN Reason: Pain, moderate (4-7) Stop: 04/26/17 11:34 Oxycodone/Acetaminophen (Percocet 5/325 Mg Tab) 2 tab PO Q6H PRN PRN Reason: Pain, severe (8-10) Stop: 04/26/17 11:34 Pantoprazole Sodium (Protonix Inj) 40 mg IVP DAILY [facility] Last Admin: 04/23/17 11:07 Dose: 40 mg - Labs Labs: 04/24/17 06:10 04/24/17 06:10 PT 13.7 Seconds (9.9-11.8) H 04/22/17 07:30 INR 1.27 (0.93-1.08) H 04/22/17 07:30 APTT 29.2 Seconds (23.7-30.8) 04/22/17 07:30 - Constitutional Appears: Non-toxic - Head Exam Head Exam: NORMAL INSPECTION - Eye Exam Eye Exam: EOMI, Normal appearance - ENT Exam ENT Exam: Mucous Membranes Moist - Neck Exam Neck Exam: absent: Full ROM - Respiratory Exam Respiratory Exam: Clear to Ausculation Bilateral, NORMAL BREATHING PATTERN. absent: Accessory Muscle Use, Respiratory Distress - Cardiovascular Exam Cardiovascular Exam: REGULAR RHYTHM. absent: Bradycardia, Tachycardia - GI/Abdominal Exam GI & Abdominal Exam: Soft, Normal Bowel Sounds. absent: Distended, Firm, Tenderness - Extremities Exam Extremities Exam: Full ROM, Normal Inspection. absent: Pedal Edema - Neurological Exam Neurological Exam: Alert, Awake, Oriented x3 - Psychiatric Exam Psychiatric exam: Normal Affect, Normal Mood - Skin Skin Exam: Dry, Intact, Normal Color, Warm Assessment and Plan - Assessment and Plan (Free Text) Assessment: 76M cholecystitis s/p laparoscopic cholecystectomy POD#1 Plan: diet: HHD f/u diet tolerance c/w current medical management c/w current pain control c/w abx c/w Heparin encourage Incentive spirometer encourage OOBTC/ambulation Patient has no other surgical interventions at this time. vitals stable. labs stable. d/w with Dr. Alin Kern, DO PGY1
[2017-04-24] MEDS: Metoprolol Succinate 100 mg XL Tab PO SCH (08:19)
[2017-04-24 08:53] VITALS: TEMP 99; O2SAT 99
[2017-04-24 09:40] VITALS: BP 164/86
--- NOTE | 2017-04-24 09:54 | PN ---
SUBJECTIVE: The patient was seen and examined at bedside on the general medical [facility]. No acute events overnight. He remains afebrile and hemodynamically stable and is doing well status post his laparoscopic cholecystectomy secondary to acalculous cholecystitis. The patient is tolerating p.o. intake without difficulty and is passing flatus but has not yet had a bowel movement. Otherwise he states he feels well and denies any complaints. OBJECTIVE: VITAL SIGNS: Temperature 99.6, pulse 70, blood pressure 164/80, respiratory rate 20, and oxygen saturation is 94% on room air. GENERAL: Obese male lying in bed, in no apparent distress. HEENT: PERRL. EOMI. No scleral icterus. No conjunctival pallor. NECK: No JVD. No bruits. LUNGS: Clear to auscultation. CARDIOVASCULAR: Regular rate and rhythm. Normal S1 and S2. ABDOMEN: Normoactive bowel sounds, soft, and minimal tenderness to palpation to right upper quadrant with voluntary guarding. No rigidity. No tympany. Laparoscopic surgical scars appeared clean, dry, and intact. EXTREMITIES: No edema. NEUROLOGIC: Awake, alert, and oriented x3. No focal motor deficits. LABORATORY DATA: WBC 11.3 with 76% neutrophils, hemoglobin 11, hematocrit 34, and platelets 147. Chemistry reviewed and largely unremarkable. Total bilirubin 1.4. Blood cultures with no growth to date. ASSESSMENT: The patient is a 76-year-old man with past medical history of coronary artery disease, status post myocardial infarction, status post coronary artery bypass graft, hypertension, hyperlipidemia, and morbid obesity, who presented to [facility] with a several hour history of acute onset of severe sharp stabbing right upper quadrant abdominal pain and who is admitted to the general medical [facility] for continued pain control and management of sepsis secondary to acute acalculous cholecystitis, who is now status post laparoscopic cholecystectomy postoperative day #2. PLAN: 1. Acalculous cholecystitis, status post laparoscopic cholecystectomy, postop day #2. Continue with postoperative care as per Dr. Ogden and the surgical team. The patient is on a regular diet and tolerating p.o. intake without difficulty. He is passing flatus, but he has not yet had any bowel movement. Given that the patient is eating, we will discontinue IV fluids. 2. Sepsis secondary to acute acalculous cholecystitis, resolving. Input from Dr. Balderas of infectious disease noted and appreciated and the patient remains on Zosyn 4.5 g IV q.6 hours. We will continue to monitor for fever and leukocytosis. 3. CAD, status post PA, status post CABG. The patient remains hemodynamically stable and chest pain free. Continue with aspirin 81 mg p.o. daily, Lipitor 40 mg p.o. daily, and Toprol-XL 100 mg p.o. daily. 4. Hypertension. Blood pressure is slightly elevated; however, this may be due to pain as well as IV fluid infusion, which we will discontinue. We will continue to monitor hemodynamics and adjust antihypertensives as needed. 5. Hyperlipidemia. He is on Crestor 20 mg at home; however, since this is not on formulary, he remains on Lipitor 40 mg p.o. daily. 6. Morbid obesity. The patient was advised to implement dietary changes. 7. Prophylaxis. Continue with Protonix for GI prophylaxis and Venodyne for DVT prophylaxis. CODE STATUS: FULL CODE. Ruben Boswell MD [facility]
[2017-04-24] MEDS ORDERED: POLYETHYLENE GLYCOL 3350 17 GM/Dose PACKET PO SCH (10:30)
--- NOTE | 2017-04-24 10:30 | PN ---
DATE: 04/24/2017 SUBJECTIVE: The patient is lying in bed. He is tolerating solid foods. He is status post laparoscopic cholecystectomy day 2. He denies any fevers of chills. PHYSICAL EXAMINATION VITAL SIGNS: Temperature of 99, blood pressure 164/86, and heart rate of 70. ABDOMEN: Soft, multiple laparoscopic puncture wounds which are cleaned without drainage. There is less right upper quadrant tenderness. LABORATORY DATA: Revealed white blood cell count down to 11.3 and hemoglobin 11.1. Chemistries reveal normal electrolytes. AST, ALT, alkaline phosphates were all normal. Total bilirubin is down to 1.4. IMPRESSION: A 76-year-old male who admitted to the hospital with right upper quadrant abdominal pain, fevers, leukocytosis with acalculous cholecystitis. He underwent cholecystectomy and is doing well. RECOMMENDATIONS: The patient is stable from GI standpoint and can be followed up as an outpatient. Buck Hunt MD
[2017-04-24 16:31] VITALS: PULSE 73
== END 2017-04-24 15:23 | disposition home or self-care (01) | DRG 854 ==
LOC: ED 17:01 → ERH 20:45 → 3RNO 22:04
PROVIDERS: ADMIT Student in an Organized Health Care Education/Training Program; ATTEND Student in an Organized Health Care Education/Training Program
PROC: BF101ZZ Fluoroscopy of Bile Ducts using Low Osmolar Contrast (ICD-10-PCS; 2017-04-22)
PROC: 0FT44ZZ Resection of Gallbladder, Percutaneous Endoscopic Approach (ICD-10-PCS; principal; 2017-04-22 17:00)
DX: A41.9 Sepsis, unspecified organism (principal); K81.2 Acute cholecystitis with chronic cholecystitis; E66.01 Morbid (severe) obesity due to excess calories; I10 Essential (primary) hypertension; I25.10 Atherosclerotic heart disease of native coronary artery without angina pectoris; E78.5 Hyperlipidemia, unspecified; I25.2 Old myocardial infarction; Z68.38 Body mass index [BMI] 38.0-38.9, adult; Z95.1 Presence of aortocoronary bypass graft